=== PATIENT | male | born 1960 | race Caucasian/White ===

== ENCOUNTER 2019-06-30 09:43 | Emergency (ER) | payer MEDICAID, MEDICARE ==
[~2019-06-30] VITALS: Ht 170.2 cm; Wt 91.5 kg
[2019-06-30 10:35] LABS: BASOPHILS # (AUTO) 0.1 X10'3 (0-0.2); EOSINOPHILS # (AUTO) 0.1 X10'3 (0-0.9); HEMATOCRIT 51.3 % (42.0-52.0); HEMOGLOBIN 17.5 g/dl (14.0-17.9); LYMPHOCYTES # (AUTO) 1.2 X10'3 (1.1-4.8); LYMPHOCYTES % (AUTO) 15.3 % (21-51); MEAN CORPUSCULAR HEMOGLOBIN 33.8 PG (27.0-31.0); MEAN CORPUSCULAR HGB CONC 34.1 g/dL (33.0-36.5); MEAN CORPUSCULAR VOLUME 99.2 FL (78-98); MEAN PLATELET VOLUME 9.5 FL (7.4-10.4); MONOCYTES # (AUTO) 0.8 X10'3 (0-0.9); MONOCYTES % (AUTO) 10.8 % (2-12); NEUTROPHILS # (AUTO) 5.4 X10'3 (1.8-7.7); NEUTROPHILS % (AUTO) 71.9 % (42-75); PLATELET COUNT 134 X10'3 (140-440); RED BLOOD COUNT 5.17 X10'6 (4.70-6.10); RED CELL DISTRIBUTION WIDTH 14.6 % (11.5-14.5); WHITE BLOOD COUNT 7.5 X10'3 (4.5-11.0)
[2019-06-30 10:44] LABS: ALANINE AMINOTRANSFERASE 87 U/L (12-78); ALBUMIN/GLOBULIN RATIO 1.1 (1.1-1.5); ALKALINE PHOSPHATASE 85 IU/L (46-116); ASPARTATE AMINO TRANSFERASE 60 U/L (10-37); BILIRUBIN,TOTAL 0.3 MG/DL (0.1-1.0); BLOOD UREA NITROGEN 10 MG/DL (7-18); BUN/CREATININE RATIO 11.8 (5.4-32.0); CREATININE 0.85 MG/DL (0.60-1.10); ETHANOL 0.063 GM/DL (0.0-0.010); GLUCOSE 81 MG/DL (70-104); TOTAL PROTEIN 7.5 G/DL (6.4-8.2); eGFR > 90 ML/MIN
[2019-06-30 10:46] LABS: CALCIUM 8.5 MG/DL (8.5-10.1)
[2019-06-30 10:52] LABS: URINE AMPHETAMINE SCREEN NEGATIVE (Neg); URINE BARBITUATE SCREEN NEGATIVE (Neg); URINE BENZODIAZEPINES SCREEN POSITIVE (Neg); URINE CANNABINOID SCREEN POSITIVE (Neg); URINE COCAINE SCREEN NEGATIVE (Neg); URINE METHADONE SCREEN NEGATIVE (Neg); URINE OPIATE SCREEN NEGATIVE (Neg); URINE PHENCYCLIDINE SCREEN NEGATIVE (Neg)
[2019-06-30 10:55] LABS: CHLORIDE 103 MMOL/L (99-107); POTASSIUM 4.3 MMOL/L (3.5-5.1)
[2019-06-30] MEDS ORDERED: chlordiazePOXIDE 25mg capsule PO ONE (10:55)
[2019-06-30] MEDS ORDERED: folic acid 1mg tablet PO ONE (11:00)
[2019-06-30] MEDS ORDERED: thiamine 100mg tablet PO ONE (11:00)
[2019-06-30 11:01] LABS: ANION GAP 11 (8-16); SODIUM 142 MMOL/L (135-145)
[2019-06-30] MEDS ORDERED: CHLO25CA10 PO (11:08)
[2019-06-30] MEDS ORDERED: PROM12.512 PO (11:08)
[2019-06-30] MEDS ORDERED: normal saline 1000ml 1,000 ML IV ONE (11:10)
[2019-06-30 11:29] VITALS: BP 142/93
== END 2019-06-30 11:42 | disposition home or self-care (01) ==
LOC: ER 09:44
DX: F10.239 Alcohol dependence with withdrawal, unspecified (principal); H53.9 Unspecified visual disturbance; I10 Essential (primary) hypertension; F17.200 Nicotine dependence, unspecified, uncomplicated; Z88.8 Allergy status to other drugs, medicaments and biological substances; Z79.899 Other long term (current) drug therapy; Y90.9 Presence of alcohol in blood, level not specified
CPT/HCPCS: 36415; 80053; 80305; 80320; 83735; 85025; 99284; J7030

== ENCOUNTER 2019-09-01 11:03 | Emergency (ER) | payer MEDICAID ==
[~2019-09-01] VITALS: Ht 170.2 cm; Wt 94.0 kg
[~2019-09-01 11:03] MED LIST: CHLO25CA10 PO; PROM12.512 PO
[2019-09-01] MEDS ORDERED: magnesium oxide 400mg tablet PO ONE (11:35)
[2019-09-01] MEDS ORDERED: normal saline 1000ML IV soln IVB ONE (11:35)
[2019-09-01] MEDS ORDERED: thiamine 100mg tablet PO ONE (11:35)
[2019-09-01] MEDS ORDERED: phenobarbital inj 260 MG in normal saline 100ml IV soln 100 ML IV ONE (11:35)
[2019-09-01 12:05] LABS: BASOPHILS # (AUTO) 0.1 X10'3 (0-0.2); EOSINOPHILS % (AUTO) 0.8 % (0-6); HEMATOCRIT 46.1 % (42.0-52.0); LYMPHOCYTES % (AUTO) 16.2 % (21-51); MEAN CORPUSCULAR HEMOGLOBIN 35.1 PG (27.0-31.0); MEAN CORPUSCULAR HGB CONC 34.8 g/dL (33.0-36.5); MEAN CORPUSCULAR VOLUME 100.8 FL (78-98); MEAN PLATELET VOLUME 9.2 FL (7.4-10.4); MONOCYTES # (AUTO) 0.8 X10'3 (0-0.9); MONOCYTES % (AUTO) 12.8 % (2-12); NEUTROPHILS # (AUTO) 4.2 X10'3 (1.8-7.7); NEUTROPHILS % (AUTO) 69.2 % (42-75); PLATELET COUNT 105 X10'3 (140-440); RED BLOOD COUNT 4.57 X10'6 (4.70-6.10); RED CELL DISTRIBUTION WIDTH 14.3 % (11.5-14.5); WHITE BLOOD COUNT 6.1 X10'3 (4.5-11.0)
--- NOTE | 2019-09-01 12:22 | NUR ---
phenobarbital held at this time because patient wants to drive himself home. i explained that his etoh level is not back yet, so he still may not be able to drive if he has any etoh on board
--- NOTE | 2019-09-01 12:24 | NUR ---
PATIENT DOES NOT HAVE A RIDE HOME YET. HE IS MAKIMNG MORE PHONE CALLS. HIS CAR IS HERE
[2019-09-01 12:26] LABS: ALANINE AMINOTRANSFERASE 68 U/L (12-78); ALBUMIN 3.8 G/DL (3.4-5.0); ALBUMIN/GLOBULIN RATIO 1.2 (1.1-1.5); ALKALINE PHOSPHATASE 77 IU/L (46-116); ANION GAP 7 (8-16); ASPARTATE AMINO TRANSFERASE 63 U/L (10-37); BILIRUBIN,TOTAL 0.3 MG/DL (0.1-1.0); BLOOD UREA NITROGEN 15 MG/DL (7-18); BUN/CREATININE RATIO 17.9 (5.4-32.0); CALCIUM 8.4 MG/DL (8.5-10.1); CHLORIDE 105 MMOL/L (99-107); CREATININE 0.84 MG/DL (0.60-1.10); ETHANOL 0.136 GM/DL (0.0-0.010); GLUCOSE 107 MG/DL (70-104); MAGNESIUM 1.9 MG/DL (1.5-2.4); POTASSIUM 3.9 MMOL/L (3.5-5.1); SODIUM 138 MMOL/L (135-145); TOTAL CARBON DIOXIDE 25.8 MMOL/L (24-32); TOTAL PROTEIN 7.1 G/DL (6.4-8.2); eGFR > 90 ML/MIN
--- NOTE | 2019-09-01 12:39 | NUR ---
PATIENT HAS A RIDE HOME NOW
[2019-09-01] MEDS ORDERED: phenobarbital inj 130 MG in normal saline 100ml IV soln 100 ML IV ONE (13:15)
--- NOTE | 2019-09-01 13:17 | NUR ---
PT REFUSES SECOND DOSE OF PHENOBARBITAL, PT STATES IT IS TOO MUCH. NOTIFY DR PERRY AND HE STATES THAT IS OK AND PT CAN BE DC'D.
[2019-09-01 13:19] VITALS: BP 161/86
[2019-09-02] MEDS ORDERED: ONDA8TAB13 PO (10:08)
[2019-09-02] MEDS ORDERED: CHLO25CA10 PO ×2 (10:08→10:11)
== END 2019-09-01 13:36 | disposition home or self-care (01) ==
LOC: ER 11:03
DX: F10.229 Alcohol dependence with intoxication, unspecified (principal); F10.239 Alcohol dependence with withdrawal, unspecified; I10 Essential (primary) hypertension; Z88.8 Allergy status to other drugs, medicaments and biological substances; Z79.899 Other long term (current) drug therapy; Y90.0 Blood alcohol level of less than 20 mg/100 ml
CPT/HCPCS: 36415; 80053; 80320; 82948; 83735; 85025; 93005; 96365; 99284; J2560; J7030

== ENCOUNTER 2019-09-02 09:24 | Emergency (ER) | payer MEDICAID ==
[~2019-09-02] VITALS: Ht 170.2 cm; Wt 100.0 kg
[2019-09-02] MEDS ORDERED: ONDA8TAB13 PO (10:08)
[2019-09-02] MEDS ORDERED: CHLO25CA10 PO ×2 (10:08→10:11)
[2019-09-02 10:34] VITALS: BP 186/111
== END 2019-09-02 10:36 | disposition home or self-care (01) ==
LOC: ER 09:24
DX: F10.239 Alcohol dependence with withdrawal, unspecified (principal); N36.8 Other specified disorders of urethra; I10 Essential (primary) hypertension; Z88.8 Allergy status to other drugs, medicaments and biological substances; Z79.899 Other long term (current) drug therapy
CPT/HCPCS: 99283

== ENCOUNTER 2019-09-08 16:01 | Emergency (ER) | payer MEDICAID ==
[~2019-09-08] VITALS: Ht 170.2 cm; Wt 91.8 kg
[~2019-09-08 16:01] MED LIST changes: +ONDA8TAB13 PO
[2019-09-08 16:14] VITALS: BP 152/91
[2019-09-08] MEDS ORDERED: amox tr/potassium clavulanate 875/125mg TAB PO ONE (18:05)
[2019-09-08] MEDS ORDERED: TETanus/Pertussis (Acell)/Diphther VAC/PF (Tdap-Adult) 0.5ml syringe IMVAC ONE (18:05)
[2019-09-08] MEDS ORDERED: AMOX-422 PO (18:10)
== END 2019-09-08 18:27 | disposition home or self-care (01) ==
LOC: ER 16:02
DX: S60.512A Abrasion of left hand, initial encounter (principal); S60.511A Abrasion of right hand, initial encounter; L03.114 Cellulitis of left upper limb; L03.113 Cellulitis of right upper limb; I10 Essential (primary) hypertension; F32.9 Major depressive disorder, single episode, unspecified; F17.200 Nicotine dependence, unspecified, uncomplicated; F10.20 Alcohol dependence, uncomplicated; Z88.8 Allergy status to other drugs, medicaments and biological substances; Z79.2 Long term (current) use of antibiotics; Z79.899 Other long term (current) drug therapy; W54.0XXA Bitten by dog, initial encounter; Y93.89 Activity, other specified; Y92.89 Other specified places as the place of occurrence of the external cause; Y99.8 Other external cause status; Y90.9 Presence of alcohol in blood, level not specified
CPT/HCPCS: 90471; 90715; 99284